=== PATIENT | male | born 1965 | race Caucasian/White ===

== ENCOUNTER 2016-07-10 14:34 | Emergency (ER) | payer OTHER ==
[~2016-07-10] VITALS: Ht 190.5 cm; Wt 97.7 kg
[2016-07-10 14:38] VITALS: BP 167/109; PULSE 82; RESP 18; O2SAT 98
[2016-07-10] MEDS ORDERED: FLUO40CA PO ×2 (14:46→23:12)
[2016-07-10] MEDS ORDERED: OLAN10TA3 PO (14:46)
[2016-07-10] MEDS ORDERED: CETI10CA PO (14:51)
[2016-07-10] MEDS ORDERED: MELA1TAB10 PO ×2 (14:51→23:12)
--- NOTE | 2016-07-10 16:13 | ED.REPORT ---
HPI-Psychiatric Illness Date of Service Jul 10, 2016 ED Provider: Alie Velázquez Patient is a 51 year old male who presents to the ED from [facility] in custody of complaining of depression. Per , he had made multiple statements about having suicidal ideations with a plan. Associated symptoms include auditory hallucinations and R knee pain with weakness. He currently denies suicidal ideations, R knee swelling, fever, chills, cough, vomiting, or any other symptoms. He reports that he had a doctors appointment for his depression a few months ago and was started on Zyprexa. The medication has helped but he still feels like he is struggling to manage his depression. Nursing Notes Stated Complaint: MENTAL HEALTH Chief Complaint: Psychiatric Complaint Nursing Notes Reviewed: Yes Allergies: Coded Allergies: No Known Allergies (Unverified Allergy, Unknown, 01/23/14) Scheduled Cetirizine HCl (Zyrtec) 10 Mg Capsule 10 MG PO HS Cetirizine HCl (24Hour Allergy) 10 Mg Tablet 10 MG PO DAILY Fluoxetine (Fluoxetine) 40 Mg Capsule 40 MG PO DAILY Fluoxetine (Fluoxetine) 40 Mg Capsule 40 MG PO DAILY Melatonin (Melatonin 1 mg Tablet) 1 Each Tablet 1 MG PO HS Melatonin (Melatonin 1 mg Tablet) 1 Each Tablet 1 MG PO HS Olanzapine (Zyprexa) 10 Mg Tablet 10 MG PO DAILY Olanzapine ODT (Olanzapine ODT) 10 Mg Tablet 10 MG PO DAILY General Time Seen by MD: 16:12 Chief Complaint Depressed Hx Obtained From: Patient Arrived By: Police Recent Healthcare: Recent doctor visit Similar Sx Previous: Yes Risk-Psychiatric Illness Suicide Risk Stratification Suicide Risk Factors - Adult: No: Access to firearms, Alcohol use, Substance abuse RF Statements: Risk factors reviewed Past Medical History Past Medical History Reports: Depression Past Surgical History R rotator cuff surg Smoking History Never Smoker Social History incarcerated Ambulatory Status Independent Review of Systems Constitutional: Denies: Chills, Fever Respiratory: Denies: Non-productive cough GI: Denies: Vomiting Psychiatric: Reports: Depression, Hallucinations, auditory, Hallucinations, visual, Denies: Suicidal ideation Complete sys rev & neg: except as marked. Musculoskeletal: Reports: Joint pain (R knee ), Denies: Joint swelling Physical Exam Initial Vital Signs Vital Signs (First) Date Time Temp Pulse Resp B/P Pulse Ox O2 Delivery O2 Flow Rate FiO2 07/10/16 14:38 36.1 82 18 167/109 98 07/10/16 19:55 Room Air Initial VS: Reviewed Head / Eyes: Atraumatic, Normocephalic Respiratory: No respiratory distress Cardiovascular: Regular rate & rhythm, Intact distal pulses Skin: Warm, Dry General/Constitutional: Awake, Alert, Well developed Neurologic: Oriented X3, Speech NL Psychiatric: Not suicidal Abnormal Mood/Affect: Positive: Depressed Abdomen: Soft, No guarding, No rebound Tenderness/Guarding/Rebound: Positive: Tender suprapubic (Mild ) Lower Extremity / Pelvis / MS: Tendon function NL R knee has no effusion, swelling, warmth, or pain with passive movement. Stable. Interpretation & Diagnostics Lab Results Interpretation Result Diagram: 07/10/16 1624 07/10/16 1624 Test 07/10/16 15:23 07/10/16 16:24 Hold Urine Received (Received) White Blood Count 5.3th/mm3 (3.8-10.1) Red Blood Count 4.75mil/mm3 (4.40-5.80) Hemoglobin 14.1g/dL (13.8-17.2) Hematocrit 41.1% (41.0-50.0) Mean Corpuscular Volume 86.5fL (81-100) Mean Corpuscular Hemoglobin 29.7pg (27.0-35.0) Mean Corpuscular Hemoglobin Concent 34.3% (32.0-37.0) Red Cell Distribution Width 12.8% (12.3-15.4) Platelet Count 147bil/L (150-400) Neutrophils (%) (Auto) 55.4% (40-74) Lymphocytes (%) (Auto) 35.6% (14-46) Monocytes (%) (Auto) 5.8% (4-12) Eosinophils (%) (Auto) 3.0% (0-5) Basophils (%) (Auto) 0.2% (0-3) Sodium Level 145mEq/L (134-144) Potassium Level 4.0mEq/L (3.5-5.2) Chloride Level 104mEq/L (97-108) Carbon Dioxide Level 27mmol/L (18-29) Blood Urea Nitrogen 13mg/dL (6-24) Creatinine 0.80mg/dL (0.76-1.27) Estimat Glomerular Filtration Rate 109mL/min (>59) Glucose Level 107mg/dL (60-99) Calcium Level 9.1mg/dL (8.5-10.1) Total Bilirubin 0.4mg/dL (0.0-1.2) Aspartate Amino Transf (AST/SGOT) 24U/L (0-50) Alanine Aminotransferase (ALT/SGPT) 15U/L (0-44) Alkaline Phosphatase 70U/L (25-150) Total Protein 6.8g/dL (6.4-8.4) Albumin 4.6g/dL (3.4-5.0) Thyroid Stimulating Hormone (TSH) 1.730uIU/mL (0.450-4.500) Hold Ozuna Top Tube Received (Received) X-Ray Interpretation Xray Interpretation: No acute fracture. Study Performed: Shoulder, R Interpretation / Wet Read by: Interpret - ED physician Re-Eval/Medical Decision Med Decision/Clinical Course The patient presents from [facility], he has been suicidal but denies current suicidality. He was started on medication in [facility] and says he is feeling improved. [facility] accepted the patient for 9 AM. The patient has been cooperative and will stay here overnight. The patient fell out of bed and has right shoulder pain no other signs of trauma he has some redness to her shoulder. X-rays were negative for fracture. Facet complained of a headache. Re-Evaluation/Progress : Time of Eval: 23:30 )( Re-Eval Psychiatric: No danger to self Re-Evaluation/Progress Note: Rechecked patient. He fell out of bed during a nightmare and is complaining of headache and R shoulder pain. There is no redness, swelling, bruising, or tenderness to his head. There is redness and tenderness to his R shoulder with palpation but no pain with ROM. Discharge & Departure Shift Change Sign-Out Patient Care Transferred: Yes Discussed Complaint(s): Yes Laboratory Evaluation: Back, reviewed by me Additonal Information: Transfer of care to Dr. Ely at 0000. Impression: Primary Impression: Depression Depression Type: major depressive disorder Major depression recurrence: single episode Active/Remission status: currently active Major depression episode severity: moderate Qualified Code: F32.1 - Major depressive disorder , single episode, moderate Additional Impression: Hallucinations Referrals: [facility] (PCP) Care Transferred to: Dr. Ely Care Transferred at: 00:00 Scribe Attestation Portions of this note were transcribed by Ahsan Quinteros. I, Dr. Velázquez personally performed the history, physical exam and medical decision-making; I reviewed and confirmed the accuracy of the information in the transcribed note. Signed by: Ahsan Quinteros 07/11/16, 0007 Alie Velázquez MD Jul 10, 2016 16:12 AHSAN QUINTEROS Jul 10, 2016 16:24
[2016-07-10 16:37] LABS: BASOPHILS % (AUTO) 0.2 % (0-3); MONOCYTES % (AUTO) 5.8 % (4-12); Mean Corpuscular Hemoglobin 29.7 pg (27.0-35.0); Mean Corpuscular Volume 86.5 fL (81-100); NEUTROPHILS % (AUTO) 55.4 % (40-74); Platelet Count 147 bil/L (150-400)
[2016-07-10 19:55] VITALS: BP 143/89; PULSE 85; RESP 16; O2SAT 98
[2016-07-10] MEDS ORDERED: OLAN10TA32 PO (23:12)
[2016-07-10] MEDS ORDERED: CETI-343 PO (23:12)
[2016-07-11 01:58] VITALS: BP 142/89; PULSE 63; RESP 18; O2SAT 96
[2016-07-11 06:23] VITALS: BP 139/90; PULSE 58; RESP 16; O2SAT 96
--- NOTE | 2016-07-11 09:17 | DRSVH ---
PROCEDURE: X-RAY RIGHT SHOULDER, MINIMUM TWO VIEWS ([id number]) INDICATIONS: fall out of bed onto right side TECHNIQUE: 3 views of the shoulder were acquired. COMPARISON: None. FINDINGS: Bones: No fractures or dislocations. No suspicious bony lesions. Visualized ribs appear intact. T runcation of the distal clavicle likely related to prior resection. Superior subluxation of the des ral head in severe glenohumeral joint degeneration. Tendon anchors are noted. Soft tissues: No suspicious soft tissue calcifications. IMPRESSION: 1. Postsurgical changes likely related to prior acromioplasty. 2. Severe glenohumeral joint degeneration. 3. Superior migration of the humeral head consistent with rotator cuff pathology and/or muscle atroph y. If indicated MRI could be performed to further evaluate the soft tissues. Dictated by: Gurjit SPENCE Interpreted: Nia Barber MD on 07/11/2016 at 9:15 Transcribed by: RODNEY on 07/11/2016 at 9:16 Approved by: Nia Barber MD, PhD on 07/11/2016 at 17:00
[2016-07-11 11:05] VITALS: BP 135/69; PULSE 56; RESP 16; O2SAT 98
[2016-07-11] MEDS ORDERED: OLANZapine Zydis ODT 5 mg Tablet PO ONE (14:55)
[2016-07-11] MEDS ORDERED: FLUO40CA PO (15:01)
[2016-07-11] MEDS ORDERED: CETI10CA PO (15:01)
[2016-07-11] MEDS ORDERED: OLAN10TA19 PO (15:01)
[2016-07-11] MEDS ORDERED: MELA1TAB9 PO (15:06)
[2016-07-11 15:44] VITALS: BP 133/67; PULSE 52; RESP 17; O2SAT 98
== END 2016-07-11 15:45 | disposition home or self-care (01) ==
LOC: SED 14:34
DX: F32.1 Major depressive disorder, single episode, moderate (principal); R44.0 Auditory hallucinations; M25.561 Pain in right knee; R53.1 Weakness